=== PATIENT | male | born 1965 | race Caucasian/White ===

== ENCOUNTER 2017-12-17 12:51 | Emergency (ER) | payer SELFPAY ==
[~2017-12-17] VITALS: Ht 177.8 cm; Wt 86.4 kg
[2017-12-17 13:09] VITALS: BP 115/80; TEMP 99
[2017-12-17 15:31] LABS: TRICYCLIC ANTIDEPRESS URINE NEGATIVE
[2017-12-17 16:00] VITALS: PULSE 75
== END 2017-12-17 16:00 | disposition home or self-care (01) ==
LOC: COL.ER 12:51
PROVIDERS: Emergency Medicine
DX: S93.401A Sprain of unspecified ligament of right ankle, initial encounter (principal); F17.210 Nicotine dependence, cigarettes, uncomplicated; X50.0XXA Overexertion from strenuous movement or load, initial encounter; Y92.89 Other specified places as the place of occurrence of the external cause

== ENCOUNTER → 2021-04-09 | Outpatient (CLI) | payer OTHER | LOC: COL.VAS 12:23 | DX: I51.7 Cardiomegaly (principal) ==

== ENCOUNTER → 2021-05-25 | Outpatient (CLI) | payer OTHER ==
[~2021-05-25] MED LIST: ASPIRIN 81M81 MG/TA2 PO; COZAAR 25MG25 MG/TAB PO; LIPITOR 40MG TA40 MG PO; PEPCID 20MG TAB20 MG PO; PROBIOTIC ACID1 EAC3 PO; TOPROL XL 25MG25 MG PO; TYLENOL 500MG500 MG PO
[2021-05-25 15:46] LABS: BASO % 0.3 % (0.0-2.0); GRAN # 7.9 K/mm3 (1.4-6.5); GRAN % 78.7 % (42.2-75.2); HEMATOCRIT 47.9 % (42.0-52.0); HEMOGLOBIN 16.5 g/dl (13.5-18.0); LYMPH # 1.3 K/mm3 (1.2-3.4); LYMPH % 12.8 % (20.0-51.0); MEAN CELL VOLUME 85 fl (80.0-100.0); MEAN CORPUSCULAR HEMOGLOBIN 29 pg (27-31); MEAN CORPUSCULAR HGB CONC 34 g/dl (33.0-37.0); MEAN PLATELET VOLUME 9.3 fl (7.4-10.4); MONO # 0.8 K/mm3 (0.1-0.6); MONO % 7.9 % (1.7-9.3); PLATELET COUNT 316 K/mm3 (130-400); RED BLOOD COUNT 5.62 M/mm3 (4.20-5.60); REDCELL DISTRIBUTION WIDTH-CV 14.5 % (11.5-14.5)
[2021-05-25 15:59] LABS: CALCIUM 9.1 mg/dL (8.4-10.2); CREATININE, serum 0.89 mg/dL (0.72-1.25); POTASSIUM 3.8 mmol/L (3.5-4.5)
[2021-05-25 16:12] LABS: TROPONIN-I 0.075 ng/mL (0.00-0.033)
== END ==
LOC: COL.LAB 15:25
PROVIDERS: Nurse Practitioner
DX: I51.7 Cardiomegaly (principal)

== ENCOUNTER → 2021-05-26 | Outpatient (CLI) | payer OTHER | LOC: COL.LAB 14:09 | DX: Z00.00 Encounter for general adult medical examination without abnormal findings (principal) ==